=== PATIENT | female | born 1975 | race Caucasian/White ===

== ENCOUNTER 2022-07-18 13:00 | Outpatient (CLI) | payer BC, SELFPAY ==
--- NOTE | 2022-07-18 13:20 | ECG_ITS ---
Measurements Intervals [place] Rate: 82 P: 14 [place]: 158 QRS: 1 QRSD: 98 T: 9 QT: 352 QTc: 413 Interpretive Statements SINUS RHYTHM VOLTAGE CRITERIA FOR LVH MINIMAL Q WAVES- HIGH LATERAL LEADS BASELINE WANDER- V3 BORDERLINE ECG NO PREVIOUS ECG AVAILABLE FOR COMPARISON Electronically Signed On 07-18-2022 13:37:43 SENIOR CLINICAL DATA ANALYST by Pedro Pablo Guevara D.O.
== END 2022-07-18 13:01 | disposition home or self-care (01) ==
LOC: ANHSURGERY 13:05
PROVIDERS: PCP Family Medicine; Visit Provider Obstetrics & Gynecology
DX: N92.0 Excessive and frequent menstruation with regular cycle (principal); F17.200 Nicotine dependence, unspecified, uncomplicated; Z01.818 Encounter for other preprocedural examination
CPT/HCPCS: 36415; 86850; 86900; 86901; 93005

== ENCOUNTER 2022-07-26 01:15 | Day surgery (SDC) | payer BC, SELFPAY ==
[2022-07-13 13:57] VITALS: BMI 34.0
--- NOTE | 2022-07-13 14:12 | SUR.PREOP ---
Report to the Outpatient Waiting Room, entrance under the green pavilion located off [facility], at time _0600 on date _07/26/22 . Planned Procedure Time: _0730. Time changes happen often and if your time is changed the preop area will call you the afternoon before. - You and your visitor will be asked to self-screen and do not enter if you have any COVID symptoms. - Only one visitor is requested with a max of two and NO children visitors are allowed at this time. - The patient visitor may be requested to leave or wait in car when not with patient due to distancing restrictions. - A mask is optional within the hospital. Patients may have clear liquids (water, carbonated beverages, clear teas, apple juice) until 3 hours prior to surgery with a maximum of 20 ounces. - No food from midnight until time of surgery - Infants may have breast milk until 4 hours before surgery, formula 6 hours prior to surgery. - Children will be allowed to drink immediately following surgery. If applicable, please bring a bottle or sippy cup to assist with drinking. Juice, water, soda, and popsicles are readily available. For infants on formula, please bring formula the day of surgery. Pacifiers are allowed. Take the following medications with a SIP of water the morning of surgery: _fluoxetine Medications to discontinue per physician ___vitamin supplements Date to take last dose___07/23/22 Please no make-up, nail [place], hairspray, perfume, deodorant, or body powder the day of surgery. No jewelry (including any body piercings) or valuables the day of surgery, leave them at home. Please take a shower or bath the night before, or the morning of, surgery with an antibacterial soap. Wear comfortable, loose fitting clothing. Children are encouraged to wear pajamas. - Jewelry must be removed prior to entering the operating room. Rings and piercings that are not removed may be cut off. - The hospital will not accept responsibility for valuables. - Please leave all valuables, including medications, at home the day of surgery. If you are going home after surgery, a licensed courtesy bus driver must drive you home. - NO public transportation without another adult if you receive anesthesia. - We recommend that an adult stay with you for 24 hours following discharge. - We also recommend that you do not drive, make important decision, drink alcoholic beverages, or take any drugs that were not prescribed by your health care provider for at least 24 hours after your discharge time. For Pediatric surgeries, we recommend two adults accompany the child home. Follow any additional instructions given to you from your surgeon. If you or anyone in your household have experienced Covid symptoms in the past week, please notify your surgeon or the nurse liaison at the phone number below for possible testing. Telephone instructions given to kala willsonand asked if any additional questions and then verbalized understanding. Patient advised to call surgeon office or pre surgery nurse liaison [phone] if any additional questions.
[2022-07-26] VITALS (10 sets, daily range): BP systolic 103–138; BP diastolic 65–86; PULSE 66–91; RESP 14–16; TEMP 36.4–36.6; O2SAT 95–100
[2022-07-26] MEDS: ACETAMINOPHEN 500 MG TABLET 1000 MG PO (06:26)
[2022-07-26] MEDS: KETOROLAC 15 MG/ML VIAL (*BKC) IV PUSH (06:54)
--- NOTE | 2022-07-26 07:14 | P.PNAN_ITS ---
Anes - Initial Pre Proc Eval Procedure: Operation Date: 07/26/22 07:30 Proposed Procedures p Total Laparoscopic Hysterectomy, Bilateral Salpingo Oophorectomy - Angela Covarrubias MD Date/Time: 07/26/22 07:14 Surgeon: Angela Covarrubias MD Pre Op Diagnosis: menorrhagia Patient Data Age: 47 Gender: F Height: 1.68 m Weight: 99.1 kg Last Vital Signs Temp 36.4 C L 07/26/22 06:33 Pulse 91 07/26/22 06:33 Resp 16 07/26/22 06:33 BP 119/81 07/26/22 06:33 Pulse Ox 98 07/26/22 06:33 O2 Del Method Room Air 07/26/22 06:33 Allergies Allergy/AdvReac Type Severity Reaction Status Date / Time latex Allergy Intermediate Hives Verified 07/26/22 06:19 Penicillins Allergy Intermediate Hives Verified 07/26/22 06:19 aspirin AdvReac Intermediate Nausea Verified 07/26/22 06:19 Home Medications Medication Instructions Recorded Confirmed Type Acidophilus 1 tab-cap PO DAILY 07/13/22 07/26/22 History albuterol sulfate 90 mcg/actuation 1 inh inhalation PRN 07/13/22 07/13/22 History aerosol inhaler ergocalciferol (vitamin D2) 1,250 5 unit PO WEEKLY 07/13/22 07/26/22 History mcg (50,000 unit) capsule fluoxetine 20 mg capsule 20 mg PO DAILY 07/13/22 07/26/22 History folic acid 1 mg tablet 1 mg PO DAILY 07/13/22 07/26/22 History methotrexate sodium 2.5 mg tablet 20 mg PO WEEKLY 07/13/22 07/26/22 History multivitamin with minerals-folic 1 tablet PO DAILY 07/13/22 07/26/22 History acid 0.4 mg tablet ondansetron HCl 4 mg tablet 4 mg PO WEEKLY 07/13/22 07/26/22 History progesterone micronized 200 mg 200 mg PO DAILY 07/13/22 07/26/22 History capsule Patient hx anesthesia problems: none Family hx anesthesia problems: none Results Review: All pre-operative results and documents have been reviewed as part of the pre- operative evaluation. [facility] Past Medical History Medical History Anxiety Asthma Hx of migraines Rheumatoid arthritis Social History Social History Smoking status: Heavy tobacco smoker Tobacco type: cigarettes Additional smoking assessment comments: 3/4 ppd [id number] Alcohol intake: current Drinks per week: 2 Living arrangements: with family Spiritual care concerns: No Anes - Eval Final PreProcedure Day of Procedure 07/26/22 07:14 Patient weight: obese Heart: regular rate and rhythm Lungs: decreased breath sounds Airway: Mallampati scale class III Neurological: alert and oriented Last oral intake: >/= 8 hours ASA classification: III Emergent: no Anesthetic plan: proceed Anesthesia type and monitoring: general ETT and standard monitoring Results Review: All pre-operative results and documents have been reviewed as part of the pre- operative evaluation. Informed Consent: The patient's anesthetic plan and its attendant risks and benefits were discussed with the patient/family/POA. Questions were solicited and answers provided to the satisfaction of the patient/family/POA.
--- NOTE | 2022-07-26 07:17 | WPDHPUPDATE1 ---
History and Physical Update Update Date/Time: 07/26/22 07:17 History and Physical has been reviewed, including an updated exam of the patient. There are NO changes in the patient's condition. Risks, benefits, and alternatives have been discussed and questions answered. Patient agrees to proceed with procedure.
[2022-07-26] MEDS: LACTATED RINGERS 1,000 ML 30 ML IV CONT ×3 (07:20→11:54)
--- NOTE | 2022-07-26 07:23 | PM.IMHP ---
H&P: HPI History of Present Illness Date/Time: 07/26/22 07:23 Chief Complaint: Menorrhagia Narrative: this patient is a 47-year-old female with severe menorrhagia. We have agreed to perform total laparoscopic hysterectomy and bilateral salpingo-oophorectomy. She understands there is risk. She understands injuries may occur that result in hospitalization, more surgery and severe illness. She understands there is risk of hemorrhage infection. She has completed the informed consent process. Review of Systems Review of Systems: All systems reviewed & are unremarkable except as noted in HPI and below Constitutional: Constitutional: Denies chills, Denies fatigue, Denies fever(s) and Denies weakness Eyes: Eyes: Denies blurry vision, Denies change in vision, Denies loss of peripheral vision, Denies loss of vision, Denies other visual disturbances and Denies eye pain ENT: Denies vertigo, Denies dizziness, Denies hearing loss, Denies mouth pain, Denies nasal obstruction, Denies neck mass and Denies neck pain Cardiovascular: Cardiovascular: Denies chest pain, Denies diaphoresis, Denies syncope, Denies leg edema and Denies dyspnea Respiratory: Respiratory: Denies chest congestion, Denies cough, Denies hemoptysis, Denies dyspnea and Denies wheezing Gastrointestinal: Gastrointestinal: Denies abdominal pain, Denies constipation, Denies diarrhea, Denies nausea and Denies vomiting Genitourinary: Genitourinary: Denies hematuria, Denies change in libido, Denies nocturia, Denies genital lesions, Denies flank pain and Denies urinary urgency Musculoskeletal: Musculoskeletal: Denies abnormal gait, Denies back pain, Denies myalgias, Denies arthralgias, Denies joint swelling, Denies muscle weakness and Denies neck pain Integumentary/Breasts: Skin/Breast: Denies swelling, Denies breast pain, Denies breast mass, Denies dry skin, Denies nipple discharge, Denies unusual bruising and Denies jaundice Neurologic: Denies Neuro-related abnormal movements, Denies Abnormal speech present, Denies abnormal gait, Denies behavioral changes, Denies confusion, Denies vertigo, Denies dizziness, Denies syncope, Denies loss of vision, Denies memory loss, Denies convulsions and Denies weakness Psychiatric: Psychiatric: Denies abnormal sleep pattern, Denies behavioral changes, Denies change in libido, Denies confusion, Denies depression, Denies anhedonia and Denies memory loss Endocrine: Endocrine: Reports no additional endocrine complaints, Denies change in libido and Denies fatigue Hematologic/Lymphatic: Hematologic/Lymphatic: Reports no additional hematologic/lymphatic complaints Allergic/Immunologic: Allergic/Immunologic: Reports no additional allergic/immunologic complaints and Denies wheezing PMFSH Past Medical History Medical History Anxiety Asthma Hx of migraines Rheumatoid arthritis Social History Social History Smoking status: Heavy tobacco smoker Tobacco type: cigarettes Additional smoking assessment comments: 3/4 ppd [id number] Alcohol intake: current Drinks per week: 2 Living arrangements: with family Spiritual care concerns: No Meds Home Medications and Allergies Home Medications Medication Instructions Recorded Confirmed Type Acidophilus 1 tab-cap PO DAILY 07/13/22 07/26/22 History albuterol sulfate 90 mcg/actuation 1 inh inhalation PRN 07/13/22 07/13/22 History aerosol inhaler ergocalciferol (vitamin D2) 1,250 5 unit PO WEEKLY 07/13/22 07/26/22 History mcg (50,000 unit) capsule fluoxetine 20 mg capsule 20 mg PO DAILY 07/13/22 07/26/22 History folic acid 1 mg tablet 1 mg PO DAILY 07/13/22 07/26/22 History methotrexate sodium 2.5 mg tablet 20 mg PO WEEKLY 07/13/22 07/26/22 History multivitamin with minerals-folic 1 tablet PO DAILY 07/13/22 07/26/22 History acid 0.4 mg tablet ondansetron HCl 4 mg tablet 4 m
[2022-07-26] MEDS: ceFAZolin 2 GM/D5W 50 ML 2 GM/50 ML BAG IVPB (07:33)
[2022-07-26] MEDS: ceFAZolin SODIUM 1 GM VIAL (08:06)
--- NOTE | 2022-07-26 09:35 | W.PM.PROC2 ---
Procedure Note - Detailed Date of Procedure 07/26/22 Pre-op Diagnosis menorrhagia Post-op Diagnosis Same Procedure Performed Total laparoscopic hysterectomy and bilateral salpingo-oophorectomy. Surgeon Angela Covarrubias MD Anesthesia General Indications Menorrhagia Findings enlarged uterus, normal-appearing tubes and ovaries. Description of Procedure This patient was taken to the operating room. She was prepped and draped in the dorsal lithotomy position after induction of general anesthesia. The uterine manipulator and Selvin cup were placed. This was done with a speculum and tenaculum. The speculum was placed. The cervix was grasped with a tenaculum. The stay sutures were placed at 3 and 9:00 a.m.. The stay sutures of 0 Vicryl were brought through the appropriately sized Selvin cup. The tip of the CANDIE manipulator was placed in the intrauterine cavity. The cup was slid into place around the cervix and into the fornices. It was locked into place. The sutures were then wrapped around the handle and tied under tension. A 5 mm skin incision was made in the left upper quadrant the abdomen. A 5 mm trocar was inserted into the intrauterine cavity under direct visualization of the scope. Pneumoperitoneum was achieved. A left lower quadrant 11 mm incision was made with scalpel. An 11 mm trocar was inserted into the anterior abdominal cavity under direct visualization the scope. A 5 mm infraumbilical incision was made with a scalpel and a 5 mm trocar was inserted the intra-abdominal cavity under direct visualization of the scope. Bilateral ureteral lysis was performed. This was done from the pelvic brim down to the uterine artery. This was done with careful dissection using sharp and blunt dissection. The infundibulopelvic ligaments were isolated after identification of the ureters bilaterally. These infundibulopelvic ligaments were cauterized and transected with LigaSure cautery. The para ovarian tissue was cauterized and transected with LigaSure cautery bilaterally. Moving around the ovary into the broad ligament the tissue was cauterized transected with LigaSure cautery. The round ligaments were cauterized transected with LigaSure cautery this was all done in a bilateral fashion. In a stepwise fashion along the lateral aspects of the uterus the round ligament and broad ligaments were cauterized transected down to the level of the uterine arteries. A bladder flap was created in the bladder was moved distally to the end of the cervix and over the Selvin cup. The bilateral uterine arteries were cauterized and transected. Colpotomy was then performed. In a circumferential fashion the vagina was transected using unipolar cautery. The incision was made down on the Selvin cup. The uterus, cervix, fallopian tubes and ovaries were taken out through the vagina. A pneumo occluder was placed in the vagina. The vaginal cuff was closed with a 0 V lock suture in a running fashion. The pelvis was irrigated with copious amounts antibiotic irrigation. The ureters were again examined and found to be intact and flowing freely under the uterine arteries into the bladder. The bladder was intact. It was examined directly. The vagina was irrigated with Betadine solution after removal of the Pneumo occluder. The patient was taken to recovery room. She was stable condition. Sponge lap and needle counts were correct x2. Estimated Blood Loss 50 Drains Yes Packing No Pathology Yes Complications No immediate complications Condition Stable Disposition Floor
[2022-07-26] MEDS: oxyCODONE HCL (*CRX) 5 MG TAB IR PO (11:14)
--- NOTE | 2022-07-26 11:31 | SUR.PHASEII ---
PATIENT REPORTED HAVING A SENSATION OF FEELING LIKE EVERYTHING IS GOING TO FALL OUT WHICH RESOLVED WITHIN 5 MINUTES. NOW PATIENT BELIEVES IT WAS PRESSURE FROM GAS.
== END 2022-07-26 12:15 | disposition home or self-care (01) ==
PROVIDERS: PCP Family Medicine; Visit Provider Obstetrics & Gynecology
PROC: 0UT9FZZ Resection of Uterus, Via Natural or Artificial Opening With Percutaneous Endoscopic Assistance (ICD-10-PCS; CPT 58573; principal; 2022-07-26 07:30)
DX: N92.0 Excessive and frequent menstruation with regular cycle (principal); N72 Inflammatory disease of cervix uteri; N80.00 Endometriosis of the uterus, unspecified; N83.8 Other noninflammatory disorders of ovary, fallopian tube and broad ligament; J45.909 Unspecified asthma, uncomplicated; M06.9 Rheumatoid arthritis, unspecified; F17.210 Nicotine dependence, cigarettes, uncomplicated; E66.9 Obesity, unspecified; Z68.35 Body mass index [BMI] 35.0-35.9, adult; Z79.51 Long term (current) use of inhaled steroids
CPT/HCPCS: 58573; 88307; A9270; J0690; J1100; J1885; J2250; J2405; J2704; J2710; J3010; J7030; J7120

== ENCOUNTER 2023-09-10 11:31 | Emergency (ER) | payer BC, OTHER, SELFPAY ==
--- NOTE | ~2023-09-10 | US_ITS ---
Duplex Sonography of the right extremity: Indication: Pain Findings: Sagittal and transverse B-mode images as well as color-flow imaging were performed on the r ight femoral and popliteal veins. B-mode examination was done without and with compression in the tr ansverse plane. There is good visualization of the common femoral, proximal profunda femoral, superf icial femoral, greater saphenous, and popliteal veins. Normal flow was seen on color-flow imaging. N ormal compressibility was demonstrated. Visualized calf veins are also patent. Impression: No evidence of deep vein thrombosis involving the right lower extremity. Reviewed, dictated and finalized at location M. [employer] Impression: No evidence of deep vein thrombosis involving the right lower extremity.
[2023-09-10 11:32] VITALS: BP 138/88; PULSE 97; RESP 16; TEMP 37; O2SAT 99
--- NOTE | 2023-09-10 12:23 | ED.GENADULT ---
HPI - General Adult General Chief complaint: Extremity Injury, Lower Stated complaint: R leg pain Time Seen by Provider: 09/10/23 11:58 History of Present Illness HPI narrative: 48-year-old female presenting to the emergency department for evaluation of right posterior knee and right calf pain. Patient has no prior history of PE DVT or Craig's cyst. Patient denies any falls or injuries. Patient states that she was having a nap yesterday when she woke up from the nap and then to ambulate she had onset of right calf pain. Patient denies any chest pain or shortness of it shortness of breath. Patient is not on blood thinners but does take aspirin, 81 mg daily. Related Data Home Medications Medication Instructions Recorded Confirmed Acidophilus 1 tab-cap PO DAILY 07/13/22 07/26/22 albuterol sulfate 90 mcg/actuation 1 inh inhalation PRN 07/13/22 07/13/22 aerosol inhaler ergocalciferol (vitamin D2) 1,250 5 unit PO WEEKLY 07/13/22 07/26/22 mcg (50,000 unit) capsule fluoxetine 20 mg capsule 20 mg PO DAILY 07/13/22 07/26/22 folic acid 1 mg tablet 1 mg PO DAILY 07/13/22 07/26/22 methotrexate sodium 2.5 mg tablet 20 mg PO WEEKLY 07/13/22 07/26/22 multivitamin with minerals-folic 1 tablet PO DAILY 07/13/22 07/26/22 acid 0.4 mg tablet ondansetron HCl 4 mg tablet 4 mg PO WEEKLY 07/13/22 07/26/22 progesterone micronized 200 mg 200 mg PO DAILY 07/13/22 07/26/22 capsule Allergies Allergy/AdvReac Type Severity Reaction Status Date / Time latex Allergy Intermediate Hives Verified 09/10/23 11:34 Penicillins Allergy Intermediate Hives Verified 09/10/23 11:34 aspirin AdvReac Intermediate Nausea Verified 09/10/23 11:34 Review of Systems Review of Systems: All systems reviewed & are unremarkable except as noted in HPI and below PMFSH Past Medical History Medical History Anxiety Asthma Hx of migraines Rheumatoid arthritis Social History Social History Smoking status: Heavy tobacco smoker Tobacco type: cigarettes Additional smoking assessment comments: 3/4 ppd [id number] Alcohol intake: current Drinks per week: 2 Living arrangements: with family Spiritual care concerns: No Exam Narrative: APPEARANCE: Well appearing, no pain, no distress, well-nourished. HEAD: normocephalic, atraumatic. EYES: PERRLA/EOMI, conjunctivae clear. NOSE: Normal no drainage NECK: Supple. No adenopathy, no masses. RESPIRATORY: Airway patent, respirations nonlabored. Clear to auscultation bilaterally, no rales, rhonchi, wheezing. CARDIOVASCULAR: Regular rate and rhythm without murmurs rubs or gallops. ABDOMINAL: Soft, nontender, nondistended, normal bowel sounds MUSCULOSKELETAL: Moves all extremities. No tenderness of right medial thigh some mild tenderness of posterior right knee with no anterior tenderness. Tenderness of right calf with no erythema, edema. NEURO: Alert. Cranial nerves II through XII intact. Grossly intact SKIN: Warm, dry. Normal Color Course Course Emergency Course: 48-year-old female present to the emergency department for evaluation of right calf pain. Patient has no anterior knee tenderness with no erythema no edema. Ultrasound was negative for acute finding. Suspect muscular strain. Patient was advised to take Tylenol and ibuprofen for pain control and provided crutches for limited weight-bearing. Patient was encouraged of close follow-up with her primary care physician. All questions and concerns were addressed. Vital Signs Vital signs: Vital Signs Temperature 98.6 F 09/10/23 11:32 Pulse Rate 97 09/10/23 11:32 Respiratory Rate 16 09/10/23 11:32 Blood Pressure 138/88 09/10/23 11:32 Pulse Oximetry 99 09/10/23 11:32 Temperature 98.6 F 09/10/23 11:32 Pulse Rate 92 09/10/23 15:04 Respiratory Rate 18 09/10/23 15:04 Blood Pressure 142/80 H 09/10/23 15:04 Pu
--- NOTE | 2023-09-10 13:26 | PC.NURSE ---
Ultrasound at bedside.
[2023-09-10 15:04] VITALS: BP 142/80; PULSE 92; RESP 18; O2SAT 98
== END 2023-09-10 15:05 | disposition home or self-care (01) ==
PROVIDERS: Emergency Provider Emergency Medicine; PCP Family Medicine
DX: M79.661 Pain in right lower leg (principal); J45.909 Unspecified asthma, uncomplicated; M06.9 Rheumatoid arthritis, unspecified; F41.9 Anxiety disorder, unspecified; F17.210 Nicotine dependence, cigarettes, uncomplicated
CPT/HCPCS: 93971; 99284

== ENCOUNTER 2025-05-07 13:57 | Emergency (ER) | payer BC, OTHER, SELFPAY ==
--- NOTE | ~2025-05-07 | CT_ITS ---
EXAMINATION: CT lumbar spine wo con DATE: 05/07/2025 16:40 CDT INDICATION: Lumbar back pain. No injuries TECHNIQUE: Computed tomography (CT) of the lumbar spine was performed without intravenous contrast. Reformatted images were obtained. The dose-length product was 1427.83 mGy-cm. COMPARISON: None FINDINGS: Mild levoconvex curvature of the lumbar spine. Lumbar vertebral body heights are within normal limits. Fatty liver. Cholecystectomy clips are present. Indeterminant 2.2 cm lesion in the lower pole of the left kidney. A renal mass CT is recommended. Evaluation of the spinal canal contents and bilateral neuroforamen is limited due to CT technique. At the L4-5 level, there is a small broad-based disc bulge causing mild narrowing of the spinal canal and mild narrowing of the bilateral neural foramen. At the L5-S1 level, there is a moderate-sized posterior central disc protrusion causing moderate narrowing of the spinal canal. Mild to moderate narrowing of the left neural foramen and mild narrowing of the right neural foramen. IMPRESSION: 1. No compression fracture in the lumbar spine. 2. At the L4-5 level, there is a small broad-based disc bulge causing mild narrowing of the spinal canal and mild narrowing of the bilateral neural foramen. 3. At the L5-S1 level, there is a moderate-sized posterior central disc protrusion causing moderate narrowing of the spinal canal. Mild to moderate narrowing of the left neural foramen and mild narrowing of the right neural foramen. 4. Indeterminant 2.2 cm lesion in the lower pole of the left kidney. A renal mass CT is recommended Reviewed, dictated and finalized at location Q. IMPRESSION: 1. No compression fracture in the lumbar spine. 2. At the L4-5 level, there is a small broad-based disc bulge causing mild narr owing of the spinal canal and mild narrowing of the bilateral neural foramen. 3. At the L5-S1 level, there is a moderate-sized posterior central disc protrus ion causing moderate narrowing of the spinal canal. Mild to moderate narrowing of the left neural foramen and mild narrowing of the right neural foramen. 4. Indeterminant 2.2 cm lesion in the lower pole of the left kidney. A renal m ass CT is recommended
[2025-05-07 14:10] VITALS: BP 132/87; PULSE 118; RESP 20; TEMP 36.6; O2SAT 98
--- NOTE | 2025-05-07 14:12 | ED.BACK ---
HPI - Back Pain/Injury General Chief Complaint: Back Pain/Injury <Isaiah Melendrez APRN - Last Filed: 05/07/25 14:14> Stated Complaint: LOWER BACK PAIN RAD DOWN R LEG <Isaiah Melendrez APRN - Last Filed: 05/07/25 14:14> Time Seen by Provider: 05/07/25 17:11 <Isaiah Melendrez APRN - Last Filed: 05/07/25 14:14> Focused HPI: 50-year-old female presents to the ER complaining of lumbar back pain since today. Patient reports having history of chronic back problems in her right lower back that radiates into her right hip. Patient toe she likely has sciatica. Patient today while she was rule out of bed she felt a pop in her mid lower back followed by severe in worsening pain to her lumbar back. Patient also reports numbness and tingling to the inside of her right inner thigh. Patient denies any saddle anesthesia, loss of bowel or bladder function, leg weakness, in her symptoms. Patient is not taking for the pain. GENERAL: Well-appearing, well-nourished, and in no acute distress. HEAD: Normocephalic, atraumatic. CHEST: Clear to auscultation. ?No respiratory distress. HEART: Regular rate and rhythm.? NEURO: ?Alert and oriented x3. BACK: There is lumbar spine point tenderness. No crepitus or step-offs. No cervical or thoracic point tenderness. No crepitus or step-offs. No deformity. No CVA tenderness. Patient screened in triage and initial orders placed.? ?Additional care and disposition to be based upon?diagnostic testing and treatment. <Isaiah Melendrez APRN - Last Filed: 05/07/25 14:14> Focused HPI: 50-year-old female presents to the ER complaining of lumbar back pain since today. Patient reports having history of chronic back problems in her right lower back that radiates into her right hip. Patient thinks she likely has sciatica. Patient today while she was getting out of bed, she felt a pop in her mid lower back followed by severe in worsening pain to her lumbar back. Patient also reports numbness and tingling to the inside of her right inner thigh. Patient denies any saddle anesthesia, loss of bowel or bladder function, leg weakness, in her symptoms. GENERAL: Well-appearing, well-nourished, and in no acute distress. HEAD: Normocephalic, atraumatic. CHEST: Clear to auscultation. ?No respiratory distress. HEART: Regular rate and rhythm.? NEURO: ?Alert and oriented x3. BACK: There is lumbar spine point tenderness. No crepitus or step-offs. No cervical or thoracic point tenderness. No crepitus or step-offs. No deformity. No CVA tenderness. Patient screened in triage and initial orders placed.? ?Additional care and disposition to be based upon?diagnostic testing and treatment. <Pat Myrick PA-C - Last Filed: 05/07/25 17:31> Related Data Home Medications: Home Medications ?Medication ?Instructions ?Recorded ?Confirmed ?Last Taken ?Type Acidophilus 1 tab-cap PO DAILY 07/13/22 07/26/22 07/25/22 History albuterol sulfate 90 mcg/actuation 1 inh inhalation PRN 07/13/22 07/13/22 Unknown History aerosol inhaler ergocalciferol (vitamin D2) 1,250 5 unit PO WEEKLY 07/13/22 07/26/22 07/23/22 History mcg (50,000 unit) capsule fluoxetine 20 mg capsule 20 mg PO DAILY 07/13/22 07/26/22 07/26/22 04:30 History folic acid 1 mg tablet 1 mg PO DAILY 07/13/22 07/26/22 07/25/22 History methotrexate sodium 2.5 mg tablet 20 mg PO WEEKLY 07/13/22 07/26/22 07/22/22 History multivitamin with minerals-folic 1 tablet PO DAILY 07/13/22 07/26/22 07/23/22 History acid 0.4 mg tablet ondansetron HCl 4 mg tablet 4 mg PO WEEKLY 07/13/22 07/26/22 07/19/22 History progesterone micronized 200 mg 200 mg PO DAILY 07/13/22 07/26/22 07/25/22 History capsule <Isaiah Melendrez APRN - Last Filed: 05/07/25 14:14> Allergies/Adverse Reactions: Allergies Allergy/AdvReac Type Severity Reaction Status Date / Time latex Allergy Intermediate Hives Verified 05/07/25 13:58 Penicillins Allergy Intermediate Hives Verified 05/07/25 13:58 aspirin AdvReac Intermediate Nausea Verified 05/07/25 13:58 <Isaiah Melendrez APRN - Last Filed: 05/07/25 14:14> Review of Systems Review of Systems: All systems reviewed & are unremarkable except as noted in HPI and below <Pat Myrick PA-C - Last Filed: 05/07/25 17:31> PMFSH Past Medical History Medical History: Medical History Anxiety Asthma Hx of migraines Rheumatoid arthritis <Isaiah Melendrez APRN - Last Filed: 05/07/25 14:14> Social History Social History: Social History Smoking status: Heavy tobacco smoker Tobacco type: cigarettes Additional smoking assessment comments: 3/4 ppd [id number] Alcohol intake: current Drinks per week: 2 Living arrangements: with family Spiritual care concerns: No <Isaiah Melendrez APRN - Last Filed: 05/07/25 14:14> Exam Narrative: GENERAL: Well-appearing, well-nourished, and in no acute distress. HEAD: Normocephalic, atraumatic. EYES: EOMI. CHEST: Clear to auscultation. No respiratory distress. No wheezes rales or rhonchi HEART: Regular rate and rhythm. No murmur heard. Normal peripheral pulses. EXTREMITIES: Normal range of motion. No edema. Strength equal in bilateral lower extremities (5/5). Normal DP pulses SKIN: Warm, dry, no rash. NEURO: No focal deficits. Alert and oriented x3. PSYCH: Normal mood and affect <Pat Myrick PA-C - Last Filed: 05/07/25 17:31> Course Course Emergency Course: patient updated on her workup and agrees with plan of care <Pat Myrick PA-C - Last Filed: 05/07/25 17:31> Vital Signs Vital signs: Vital Signs Temperature 97.9 F 05/07/25 14:10 Pulse Rate 118 H 05/07/25 14:10 Respiratory Rate 20 05/07/25 14:10 Blood Pressure 132/87 05/07/25 14:10 Pulse Oximetry 98 05/07/25 14:10 Oxygen Delivery Room Air 05/07/25 14:10 Temperature 97.9 F 05/07/25 14:10 Pulse Rate 118 H 05/07/25 14:10 Respiratory Rate 20 05/07/25 14:10 Blood Pressure 132/87 05/07/25 14:10 Pulse Oximetry 98 05/07/25 14:10 Oxygen Delivery Room Air 05/07/25 14:10 <Isaiah Melendrez APRN - Last Filed: 05/07/25 14:14> Vital Signs Temperature 97.9 F 05/07/25 14:10 Pulse Rate 118 H 05/07/25 14:10 Respiratory Rate 20 05/07/25 14:10 Blood Pressure 132/87 05/07/25 14:10 Pulse Oximetry 98 05/07/25 14:10 Oxygen Delivery Room Air 05/07/25 14:10 Temperature 97.9 F 05/07/25 14:10 Pulse Rate 118 H 05/07/25 14:10 Respiratory Rate 20 05/07/25 14:10 Blood Pressure 132/87 05/07/25 14:10 Pulse Oximetry 98 05/07/25 14:10 Oxygen Delivery Room Air 05/07/25 14:10 <Pat Myrick PA-C - Last Filed: 05/07/25 17:31> MDM - Back Pain/Injury MDM Narrative Medical decision making narrative: Patient presents to the emergency department for low back pain with radiation down the right leg. Tachycardic upon arrival, this normalized with management of her pain. She is neurologically intact. CT lumbar spine showing bulging discs at L4-5, L5-S1. Also a cyst on the left kidney. patient updated on her workup and agrees with plan of care. She is to follow up with her PCP. Will be given information for with Neurosurgery. She was given warnings to return to the ER <Pat Myrick PA-C - Last Filed: 05/07/25 17:31> Differential Diagnosis Differential diagnosis: Likely lumbar radiculopathy, sciatica and strain of lumbar region <Pat Myrick PA-C - Last Filed: 05/07/25 17:31> Imaging Data Radiologist's impression: ITS Impressions Lumbar Spine CT 05/07/25 16:40 IMPRESSION: 1. No compression fracture in the lumbar spine. 2. At the L4-5 level, there is a small broad-based disc bulge causing mild narrowing of the spinal canal and mild narrowing of the bilateral neural foramen. 3. At the L5-S1 level, there is a moderate-sized posterior central disc protrusion causing moderate narrowing of the spinal canal. Mild to moderate narrowing of the left neural foramen and mild narrowing of the right neural foramen. 4. Indeterminant 2.2 cm lesion in the lower pole of the left kidney. A renal mass CT is recommended <Pat Myrick PA-C - Last Filed: 05/07/25 17:31> Critical Care Time Critical Care Time Critical Care Time: No <Pat Myrick PA-C - Last Filed: 05/07/25 17:31> Discharge Plan Discharge Clinical Impression: Lumbar radiculopathy, Kidney cysts <Isaiah Melendrez APRN - Last Filed: 05/07/25 14:14> Patient Disposition: Home <Isaiah Melendrez APRN - Last Filed: 05/07/25 14:14> Condition: Improved <Isaiah Melendrez APRN - Last Filed: 05/07/25 14:14> Instructions: Acute Low Back Pain (ED), Kidney Cyst (ED) <Isaiah Melendrez APRN - Last Filed: 05/07/25 14:14> Additional Instructions: Return to the ER if you experience weakness, numbness, bowel/bladder incontinence, or any other symptoms that are concerning to you Rest, use ice/heat, take anti-inflammatories (Aleve, Ibuprofen, Naproxen, etc) or Tylenol as needed for pain as well as muscle relaxer (Flexeril) as needed for pain. Muscle relaxers can make you drowsy, do not drive if you take this. Take steroid taper as prescribed. Lidocaine patch to the area of pain as needed Follow up with your primary care doctor. You would benefit from a referral to physical therapy. You also need to have further imaging of your kidneys to look at a cyst that the radiologist has noted today Dr. Harrell is our neurosurgeon applications sales consultant (back doctor) if needed <Isaiah Melendrez APRN - Last Filed: 05/07/25 14:14> Patient Language: Thai <Isaiah Melendrez APRN - Last Filed: 05/07/25 14:14> Prescriptions: New lidocaine 5 % adhesive patch,medicated 1 patch topical DAILY Qty: 15 0RF Rx Instructions: leave on most painful area for up to 12 hrs methylprednisolone 4 mg tablets,dose pack See Rx Instructions .ROUTE .COMPLEX Qty: 21 0RF Rx Instructions: orally per package directions No Action ondansetron HCl 4 mg tablet 4 mg PO WEEKLY methotrexate sodium 2.5 mg tablet 20 mg PO WEEKLY progesterone micronized 200 mg capsule 200 mg PO DAILY folic acid 1 mg tablet 1 mg PO DAILY ergocalciferol (vitamin D2) 1,250 mcg (50,000 unit) capsule 5 unit PO WEEKLY Rx Instructions: says takes daily fluoxetine 20 mg capsule 20 mg PO DAILY Acidophilus 1 tab-cap PO DAILY multivit with min-folic acid 0.4 mg Tablet 1 tablet PO DAILY albuterol sulfate 90 mcg/actuation Hfa Aerosol Inhaler 1 inh INHALATION PRN hydrocodone-acetaminophen 5-325 mg tablet 1 - 2 tablet PO Q6H PRN (Reason: pain) Qty: 25 0RF estradiol 1 mg tablet 1 mg PO DAILY Qty: 30 12RF <Isaiah Melendrez APRN - Last Filed: 05/07/25 14:14> Follow-up/Referrals: Katarina Harrell MD [Physician, Neurosurgery] Miranda,MD Camilo [Primary Care Provider, Family Practice] <Isaiah Melendrez APRN - Last Filed: 05/07/25 14:14>
--- OUTSIDE RECORDS SUMMARY | 2025-05-07 14:33 | XMS_ITS | Clinical Summary ---
Author Organization [facility] Address [address] [place] [address] Care Team Providers Care Service Clerk Name Role Phone Unavailable Primary Care Provider Unavailabl e Social History Tobacco Use Types Packs/Day Years Used Date Smoking Tobacco: Never Assessed Comments Unknown Sex and Gender Information Value Date Recorded Sex Assigned at Not on file Legal Sex Female 10:31 PM CDT Gender Identity Not on file Sexual Orientation Not on file Plan of Treatment Health Maintenance Due Date Last Done Comments Hepatitis C Virus (HCV) Screening 1975 TdaP Immunization 1975 Hepatitis B Immunization (1 of 3 - 19+ 3-dose series) 02/21/1995 Pap Smear 02/21/1997 Cervical Cancer Screening (CCS) 02/21/2006 HPV/Cotest 02/21/2006 Cologuard 02/21/2021 Colonoscopy 02/21/2021 Colorectal Cancer Screening 02/21/2021 Immunochemical Fecal Occult Blood 02/21/2021 SARS-COV-2 Immunization ( season) 2024 06/22/2021, 10/06/2020, 09/08/2020 Influenza Immunization (#1) 2025 Respiratory Syncytial Virus (RSV) Immunization (Adult) (1 - 1-dose 75+ series) 02/21/2051 DTaP/Tdap/Td Immunization Discontinued 09/04/2002 Human Papillomavirus (HPV) Immunization Aged Out No longer eligible based on patient's age to complete this topic Meningococcal Immunization (ACWY) Aged Out No longer eligible based on patient's age to complete this topic Pneumococcal Immunization Combined Aged Out No longer eligible based on patient's age to complete this topic Rotavirus Immunization Aged Out No lo nger eligible based on patient's age to complete this topic
--- OUTSIDE RECORDS SUMMARY | 2025-05-07 14:33 | XMS_ITS | Clinical Summary ---
Author Organization [facility] Address [address] [place] [id number] Care Team Providers Care Drug Purchaser Name Role Phone Camilo Miranda MD Primary Care Provider Allergies Active Allergy Reactions Criticality Noted Date Comments Aspirin Nausea Only High 04/16/2010 Telithromycin Hives 08/25/2019 Latex Rash Low 08/25/2019 Penicillin V Hives,Shortness of Breath High 08/25/20 19 Medications albuterol sulfate HFA 108 (90 Base) MCG/ACT inhaler Inhale 2 puffs into the lungs every 4 (four) hours as needed. 02/19/2019 Active FLUoxetine 20 MG capsule Take 20 mg by mouth daily. 04/11/2021 Active naproxen 500 MG tablet Take 500 mg by mouth 2 (two) times daily. 04/12/2021 Active naproxen 500 MG tablet Take 1 tablet (500 mg total) by mouth 2 (two) times daily with meals. 60 tablet 2 04/19/2021 Active Active Problems Problem Noted Date Diagnosed Date Right ankle sprain 12/23/2019 Rotator cuff strain, left, subsequent encounter 12/23/2019 Sprain of unspecified ligame nt of right ankle, subsequent encounter 08/29/2019 Encounters Date Type Department Care Team Description 03/10/2025 12:34 PM CDT - 03/10/2025 11:59 PM CDT Hospital Encounter [facility] [address] [place] [address] Raquel Ruvalcaba MD Discharge Disposition: Home or Self Care (Routine Discharge) 03/10/2025 Travel from Last 3 Months Immunizations Immunization Administration Dates Next Due MODERNA COVID-19 (12+) MRNA, LNP-S, PF, 100 MCG/ 0.5 ML DOSE 10/06/2020,09/08/2020 Family History Medical History Relation Comments No Known Problems Brother 1 No Known Problems Brother 2 Hypertension Father Cancer Maternal Grandfather Heart Disease Maternal Grandfather Hypertension Maternal Grandfather Alzheimers Maternal Grandmother Cancer Maternal Grandmother Heart Disease Maternal Grandmother Hypertension Maternal Grandmother Diabetes Mother Seizures Mother Diabetes Paternal Grandfather Heart Disease Paternal Grandfather Alzheimers Paternal Grandmother Heart Disease Paternal Grandmother No Known Problems Sister Relation Status Comments Brother 1 Alive Brother 2 Alive Father Maternal Grandfather Maternal Grandmother Mother Alive Paternal Grandfather Alive Paternal Grandmother Sister Alive Social History Tobacco Use Types Packs/Day Years Used Date Smoking Tobacco: Every Day Cigarettes Smokeless Tobacco: Never Alcohol Use Standard Drinks/Week Comments No 0 (1 standard drink = 0.6 oz pur e alcohol) AUDIT-C Answer Date Recorded Frequency of Alcohol Consumption Never 08/25/2019 Average Number of Drinks Not on file 019 Frequency of Binge Drinking Not on file 07/29 Comments No Sex and Gender Information Value Date Recorded Sex Assigned at Female 03/10/2025 12:31 PM CDT Legal Sex Female 5:53 PM SUPPORT DBA Gender Identity Not on file Sexual Orientation Not on file Last Filed Vital Signs Vital Sign Reading Time Taken Comments Blood Pressure 116/68 08/25/2019 8:56 PM SUPPORT DBA Pulse 85 08/25/2019 8:56 PM SUPPORT DBA Temperature 37.6 C (99.7 F) 08/25/2019 8:56 PM SUPPORT DBA Respiratory Rate 16 08/25/2019 8:56 PM SUPPORT DBA Oxygen Saturation 97% 08/25/2019 8:56 PM SUPPORT DBA Inhaled Oxygen Concentration - - Weight 94.3 kg (208 lb) 04/19/2021 2:24 PM CDT Height 167.6 cm (5' 6) 04/19/2021 2:24 PM CDT Body Mass Index 33.57 04/19/2021 2:24 PM CDT Plan of Treatment Health Maintenance Due Date Last Done Comments Colorectal Cancer Screening Colonoscopy (10 Years) 1976 Annual Physical 02/21/1979 Hepatitis C 02/21/1994 Hepatitis B Vaccines (1 of 3 - 19+ 3-dose series) 02/21/1995 Pneumococcal Vaccine: Pediatrics (0 to 5 Years) and At-Risk Patients (6 to 49 Years) (1 of 2 - PCV) 02/21/1995 DTaP, Tdap and Td Vaccines ( 2 - Tdap) 01/24/2015 01/24/2005, 09/04/2002 Mammogram Screening 2016 COVID-19 Vaccine (4 - 2024-2 6 season) 2025 06/22/2021, 10/06/2020, 09/08/2020 Cervical Cancer Screening Pa p Smear (Age 30 to 64) Every 3 Years 04/28/2025 04/28/2022, 04/28/2022, 04/28/2022 Cervical Cancer Screening Pa p with HPV Testing (Age 30 to 64) Every 5 Years 04/28/2027 04/28/2022 Cervical Cancer Screening wi th HPV 04/28/2027 Meningococcal B Vaccine Aged Out No l onger eligible based on patient's age to complete this topic Meningococcal Vaccine Aged Out No sherice galileo eligible based on patient's age to complete this topic RSV Immunizations Under 20 Months Aged Out No longer eligible b ased on patient's age to complete this topic Procedures Procedure Name Priority Date/Time Associated Diagnosis Comments CTA CHEST PE PROTOCOL STAT 03/10/2025 1:29 PM CDT SOB (shortness of breath) History of DVT of lower extremity US SAUL DUPLEX UP EXT RT STAT 03/10/2025 1:08 PM CDT Right axillary swelling Lymphadenitis from Last 3 Months Results * CTA CHEST PE PROTOCOL (03/10/2025 1:29 PM CDT) Anatomical Region Laterality Modality Chest Computed Tomogra phy 03/10/2025 1:46 PM CDT Impressions 03/10/2025 1:51 PM CDT IMPRESSION: 1. No acute intrathoracic process identified. Negative for pulmonary embolism as described. 2. Hepatic steatosis. Ordered By: RAQUEL RUVALCABA Interpreted By: Shant Barrios MD, 03/10/2025 1:46 PM Narrative 03/10/2025 1:51 PM CDT [address] [place] [address] Examination: CTA chest. Exam time: 1326 hours. Clinical history: Dyspnea. Patient reported history of deep venous thrombosis. Comparison: None. Technique: Thin section spiral axial scans were acquired through the chest during the administration of intravenous contrast for evaluation of the great vessels. Coronal, sagittal and 3-D MIP coronal reconstructions were performed from the data set. A dose lowering technique was used for this procedure, which may include, but is not limited to, dose reduction techniques, automated exposure control, the use of iterative reconstruction and ALARA/Image Gently techniques. Findings: Motion limits assessment of the pulmonary arteries beyond the main and lobar branches. Within this limitation, no pulmonary embolism is identified. The heart and great vessels are otherwise unremarkable. There are calcified right hilar lymph nodes, compatible with old granulomatous disease. No hilar or mediastinal adenopathy is identified. No endobronchial abnormality is identified. Allowing for the respiratory motion, the lungs are clear. There is no pleural effusion or pneumothorax. The chest wall structures appear intact. The included sections through the upper abdomen show no acute process. The liver is diffusely diminished in attenuation relative to the spleen, compatible with steatosis. Procedure Note Shant Barrios MD - 03/10/[address] [place] [address] Examination: CTA chest. Exam time: 1326 hours. Clinical history: Dyspnea. Patient reported history of deep venousthrombosis. Comparison: None. Technique: Thin section spiral axial scans were acquired through the chestduring the administration of intravenous contrast for evaluation of thegreat vessels. Coronal, sagittal and 3-D MIP coronal reconstructions wereperformed from the data set. A dose lowering technique was used for thisprocedure, which may include, but is not limited to, dose reductiontechniques, automated exposure control, the use of iterativereconstruction and ALARA/Image Gently techniques. Findings: Motion limits assessment of the pulmonary arteries beyond themain and lobar branches. Within this limitation, no pulmonary embolism isidentified. The heart and great vessels are otherwise unremarkable. Thereare calcified right hilar lymph nodes, compatible with old granulomatousdisease. No hilar or mediastinal adenopathy is identified. Noendobronchial abnormality is identified. Allowing for the respiratorymotion, the lungs are clear. There is no pleural effusion or pneumothorax.The chest wall structures appear intact. The included sections through theupper abdomen show no acute process. The liver is diffusely diminished inattenuation relative to the spleen, compatible with steatosis. IMPRESSION: 1. No acute intrathoracic process identified. Negative for pulmonaryembolism as described. 2. Hepatic steatosis. Ordered By: RAQUEL RUVALCABA Interpreted By: Shant Barrios MD, 03/10/2025 1:46 PM us Raquel Ruvalcaba MD CT Final Resu lt * US SAUL DUPLEX UP EXT RT (03/10/2025 1:08 PM CDT) Anatomical Region Laterality Modality NA Ultrasound 03/10/2025 1:38 PM CDT Impressions 03/10/2025 1:38 PM CDT IMPRESSION: No evidence of deep venous thrombosis. Ordered By: RAQUEL RUVALCABA Interpreted By: Shant Barrios MD, 03/10/2025 1:38 PM Narrative 03/10/2025 1:38 PM CDT [address] [place] [address] Examination: Right upper extremity venous color Doppler ultrasound. Exam time: 1243 hours. Clinical history: Axillary swelling and redness. Comparison: None. Technique: Grayscale and color Doppler images including spectral analysis. Findings: Color Doppler evaluation of the deep veins of the right upper extremity demonstrates normal appearing color flow, spectra and compressibility throughout. No intraluminal filling defects are identified. Procedure Note Shant Barrios MD - 03/10/[address] [place] [address] Examination: Right upper extremity venous color Doppler ultrasound. Exam time: 1243 hours. Clinical history: Axillary swelling and redness. Comparison: None. Technique: Grayscale and color Doppler images including spectralanalysis. Findings: Color Doppler evaluation of the deep veins of the right upperextremity demonstrates normal appearing color flow, spectra andcompressibility throughout. No intraluminal filling defects areidentified. IMPRESSION: No evidence of deep venous thrombosis. Ordered By: RAQUEL RUVALCABA Interpreted By: Shant Barrios MD, 03/10/2025 1:38 PM us Raquel Ruvalcaba MD ULTRASOUND Final Resu lt from Last 3 Months Insurance [facility] Care Teams Drug Purchaser Relationship Specialty Start Date End Date Camilo Miranda MD [address] [place] [phone] PCP - General FAMILY PRACTICE 04/12/21
--- OUTSIDE RECORDS SUMMARY | 2025-05-07 14:33 | XMS_ITS | Clinical Summary ---
Author Organization [facility] Address [address] [place] [address] Care Team Providers Care Milling General Superintendent Name Role Phone Camilo Miranda MD Primary Care Provider Allergies Active Allergy Reactions Criticality Noted Date Comments Aspirin Other (See comments) Low Pt states no longer allergic Fenofibric Acid (Choline) Nausea only High 06/29/2010 Latex Penicillins Tamsulosin Angioedema High 07/11/2023 Telithromycin Hives Medium 08/25/2019 Medications albuterol HFA (PROVENTIL HFA,VENTOLIN HFA,PROAIR HFA) 90 mcg/actuation inhaler 4 (four) times a day as needed Active ezetimibe (ZETIA) 10 mg tablet Take 1 tablet (10 mg total) by mouth daily 06/19/20 Active FLUoxetine (PROzac) 40 mg capsule Take 1 capsule (40 mg total) by mouth daily 06/19/20 23 Active levoFLOXacin (LEVAQUIN) 750 mg tablet Active pregabalin (LYRICA) 75 mg capsule Take 1 capsule (75 mg total) by mouth 2 (two) times a day as needed 05/18/20 Active simvastatin (ZOCOR) 40 mg tablet Take 1 tablet (40 mg total) by mouth nightly at bedtime 06/05/20 Active aspirin 81 mg enteric coated tablet Take 1 tablet (81 mg total) by mouth daily Active folic acid (FOLVITE) 1 mg tablet Take 1 tablet (1,000 mcg total) by mouth daily 30 tablet 3 07/26/20 Active Additional Information Patient not taking.Reported on 05/27/2024 rizatriptan GRADES 1 THROUGH 5 TEACHER (MAXALT-GRADES 1 THROUGH 5 TEACHER) 10 mg disintegrating tabletIndications: Migraine Take 1 tablet (10 mg total) by mouth every 2 (two) hours as needed for migraine May repeat in 2 hours if unresolved. Do not exceed 30 mg in 24 hours. 9 tablet 3 09/19/19 24 Active clobetasoL (TEMOVATE) 0.05 % cream Apply topically 2 (two) times a day Apply thin film to psoriasis areas. Avoid use on opened skin 30 g 1 11/14/19 24 Active glipiZIDE XL (GLUCOTROL XL) 5 mg 24 hr tablet Take 1 tablet (5 mg total) by mouth daily 01/26/20 24 Active LORazepam (ATIVAN) 0.5 mg tablet Take 1 tablet (0.5 mg total) by mouth 2 (two) times a day as needed 01/01/20 24 Active spironolactone (ALDACTONE) 25 mg tablet Take 1 tablet (25 mg total) by mouth daily 01/27/20 24 Active methotrexate 25 mg/mL injection solutionIndication s:Rheumatoid Arthritis Inject 0.7 mL (17.5 mg total) under the skin every 7 days 12 mL 04/22/20 24 Active ubrogepant (Ubrelvy) 100 mg tablet Take 1 tablet (100 mg total) by mouth daily as needed for migraine May repeat dose once in 2 hours if no relief. Do not exceed 2 doses in 24 hours. 10 tablet 5 05/27/20 24 Active topiramate (TOPAMAX) 50 mg tabletIndications: Chronic migraine without aura without status migrainosus, not intractable TAKE 1 TABLET BY MOUTH TWICE DAILY 60 tablet 11 07/31/20 24 Active Active Problems Problem Noted Date Diagnosed Date Chronic migraine without aur a without status migrainosus, not intractable 09/19/2023 Closed head injury 05/16/2023 Syncope and collapse 05/16/2023 Cervical strain, acute, initial encounter 2022 Neoplasm of cervical spine 05/16/2023 Lacunar infarction 05/16/2023 Rotator cuff strain, left, subsequent encounter 12/23/2019 Right ankle sprain 08/29/2019 Hypertriglyceridemia 06/29/2010 Hypotension 06/29/2010 Chest pain 04/16/2010 Tobacco dependence syndrome 04/16/2010 Immunizations Immunization Administration Dates Next Due Influenza, Unspecified 06/14/2023 Moderna SARS-CoV-2 Monovalent Vaccination (12+ Y RS) 06/22/2021 Td, adsorbed 09/04/2002 Surgical History Surgery Date Site/Laterality Comments TONSILLECTOMY GALLBLADDER SURGERY HYSTERECTOMY Medical History Medical History Date Comments Abnormal ECG Anxiety Asthma Cancer (HCC) Depression Type 2 diabetes mellitus Myocardial infarction (HCC) Rheumatoid arthritis (HCC) Family History Medical History Relation Name Comments Cancer Maternal Grandfather Cancer Maternal Grandmother Diabetes Maternal Grandmother Heart disease Maternal Grandmother Stroke Maternal Grandmother Diabetes Mother Stroke Mother Diabetes Paternal Grandfather Hypertension Paternal Grandfather Heart disease Paternal Grandmother Hypertension Paternal Grandmother Relation Name Status Comments Father Maternal Grandfather Maternal Grandmother Mother Paternal Grandfather Paternal Grandmother Social History Tobacco Use Types Packs/Day Years Used Date Smoking Tobacco: Every Day Cigarettes 0.3 35.7 Started: 1989 Tobacco Cessation:Ready to Q uit: Not Asked; Counseling Given: Not Answered Social Connection and Isolation Panel Answer Date Recorded In a typical week, how many times do you talk on the phone with family, friends, or neighbors? Three times a week 06/13/2024 How often do you get togethe r with friends or relatives? Never 06/13/2024 How often do you attend chur ch or latter day services? Never 06/13/2024 Do you belong to any clubs o r organizations such as confucianist groups, unions, fraternal or athletic groups, or school groups? No 06/13/2024 How often do you attend meet ings of the clubs or organizations you belong to? Not asked 06/13/2024 Are you , , di vorced, , never , or living with a partner? 06/13/2024 Overall Financial Resource Strain (CARDIA) Answe r Date Recorded How hard is it for you to pa y for the very basics like food, housing, medical care, and heating? Not hard at all 06/13/2024 PHQ-2 Answer Date Recorded Patient Health Questionnaire-2 Score 2 06/13/2024 [facility] Occup[facility] ional [facility] - Occupational Stress Questionnaire Answer Date Recorded Do you feel stress - tense, restless, nervous, or anxious, or unable to sleep at night because your mind is troubled all the time - these days? Not at all 06/13/2024 Exercise Vital Sign Answer Date Recorde d On average, how many days pe r week do you engage in moderate to strenuous exercise (like a brisk walk)? 4 days 06/13/2024 On average, how many minutes do you engage in exercise at this level? 10 min 06/13/2024 Hunger Vital Sign Answer Date Recorded Within the past 12 months, y ou worried that your food would run out before you got the money to buy more. Never true 06/13/20 24 Within the past 12 months, t he food you bought just didn't last and you didn't have money to get more. Never true 06/13/2024 PRAPARE - Transportation Answer Date Re corded In the past 12 months, has l ack of transportation kept you from medical appointments or from getting medications? No 05/28 In the past 12 months, has l ack of transportation kept you from meetings, work, or from getting things needed for daily living? No 06/13/2024 Housing Stability Vital Sign Answer Zaid e Recorded In the last 12 months, was t here a time when you were not able to pay the mortgage or rent on time? 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 Gender Identity Not on file Sexual Orientation Not on file Obstetrics History Last Filed Vital Signs Vital Sign Reading Time Taken Comments Blood Pressure 138/85 02/20/2024 9:44 AM CDT Pulse 94 05/27/2024 10:27 AM CDT Temperature 36.8 C (98.2 F) 02/20/2024 9:44 AM CDT Respiratory Rate 18 05/27/2024 10:2 7 AM CDT Oxygen Saturation 99% 05/27/2024 10: 27 AM CDT Inhaled Oxygen Concentration - - Weight 99.7 kg (219 lb 12.8 oz) 024 10:27 AM CDT Height 167.6 cm (5' 6) 05/27/2024 10:2 7 AM CDT Body Mass Index 35.48 05/27/2024 10:27 AM CDT Plan of Treatment Health Maintenance Due Date Last Done Comments Breast Cancer Screening-Mammogram 1976 Colon Cancer Screening-Colonoscopy 1976 Depression Screening 1976 Regular Well Visit/Exam 18-64 02/21/1994 Pneumococcal vaccine <65 (1 of 2 - PCV) 02/21/1995 Zoster Vaccine (1 of 2) 02/21/1995 DTaP/Tdap/Td Vaccine (1 - Tdap) 09/05/2002 3 Covid-19 Vaccine (4 - season) 2024 06/22/2021, 10/06/2020, 09/08/2020 Influenza Vaccine (#1) 2025 06/14/2023 Hepatitis B Screening Completed 02/20/2024 Hepatitis C Screening Completed 02/20/2024 Procedures Procedure Name Priority Date/Time Associated Diagnosis Comments HEPATITIS C ANTIBODY Routine 02/20/2024 10:33 AM CDT Fever, unspecified fever cause High risk medication use from Last 3 Months or Most Recently Relevant to Health Maintenance Results * Hepatitis C antibody Blood (02/20/2024 10:33 AM CDT) Hep C Ab Nonreactive Nonreactive Comment:Antibodies to HCV no t detected. Does NOT exclude the possibility of recent exposure to HCV. Current interpretive data was last revised on 22 Blood 02/20/2024 10:3 3 AM CDT 02/20/2024 12:37 PM CDT Emilee Kumar NP LAB MICROBIOLOGY - GE NERAL ORDERABLES Final Result [facility] Department [place] [address] from Last 3 Months or Most Recently Relevant to Health Maintenance Insurance [facility] [employer] [place] Care Teams Milling General Superintendent Relationship Specialty Start Date End Date Camilo Miranda MD [address] [place], [place] [id number] PCP - General Family Medicine 05/16/23
--- OUTSIDE RECORDS SUMMARY | 2025-05-07 14:33 | XMS_ITS | Encounter Summary ---
Author Organization [facility] Address [address] [place] [id number] Care Team Providers Care Tank House Operator Helper Name Role Phone None, Provider Primary Care Provider Camilo Longoria MD Primary Care Provider Encounter Details Date Type Department Care Team (Late st Contact Info) Description 02/02/2019 Abstract SFL CONVERSION [address] [place] [address] , Generic Conversion, Social History Tobacco Use Types Packs/Day Years Used Date Smoking Tobacco: Never Assessed Comments Unknown Sex and Gender Information Value Date Recorded Sex Assigned at Female 03/10/2025 12:31 PM CDT Legal Sex Female 5:53 PM [employer]ER [employer] Gender Identity Not on file Sexual Orientation Not on file documented as of this encounter Plan of Treatment Not on file documented as of this encounter Visit Diagnoses Not on filedocumented in this encounter Care Teams Tank House Operator Helper Relationship Specialty Start Date End Date None, Provider, PCP - General 08/25/19 04/11/21 Camilo Miranda MD [address] [place] [address] PCP - General FAMILY PRACTICE 04/12/21 documented as of this encounter
[2025-05-07] MEDS: ACETAMINOPHEN 500 MG TABLET 1000 MG PO (17:41)
[2025-05-07] MEDS: LIDOCAINE 5% PATCH 1 PATCH TRANSDERM (17:41)
[2025-05-07] MEDS: diazePAM INJ (*CRX) 10 MG/2 ML SYRINGE 5 MG IM (17:41)
[2025-05-07 18:02] VITALS: BP 139/80; PULSE 86; RESP 17
== END 2025-05-07 18:04 | disposition home or self-care (01) ==
LOC: ANHED 17:50
PROVIDERS: Emergency Provider Physician Assistant; PCP Family Medicine
DX: M54.16 Radiculopathy, lumbar region (principal); N28.1 Cyst of kidney, acquired; J45.909 Unspecified asthma, uncomplicated; M06.9 Rheumatoid arthritis, unspecified; F41.9 Anxiety disorder, unspecified; F17.210 Nicotine dependence, cigarettes, uncomplicated
CPT/HCPCS: 72131; 96372; 99284; A9270; J3360